=== PATIENT | male | born 1975 | race American Indian/Alaskan Native ===

== ENCOUNTER 2018-03-19 07:38 | Emergency (ER) | payer OTHER ==
[2018-03-19 08:42] LABS: Basophils # (Auto) 0.1 K/mm3 (0.0-0.1); Basophils % (Auto) 0.7 % (0.0-1.8); Lymphocytes # (Auto) 1.5 K/mm3 (1.2-5.4); Lymphocytes % (Auto) 11.8 % (13.4-35.0); Mean Corpuscular HGB Conc 36 % (32-34); Mean Corpuscular Hemoglobin 34 pg (28-32); Mean Corpuscular Volume 96 fl (84-94); Monocytes # (Auto) 0.9 K/mm3 (0.0-0.8); Monocytes % (Auto) 6.9 % (0.0-7.3); Platelet Count 244 K/mm3 (140-440)
[2018-03-19 08:45] LABS: Hematocrit 43.3 % (35.5-45.6); Hemoglobin 15.4 gm/dl (11.8-15.2)
[2018-03-19] MEDS ORDERED: NACL 0.9% 1000 ML 1,000 ML IV ONE (09:01)
[2018-03-19] MEDS ORDERED: DILAUDID IV ONE (09:01)
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
[2018-03-19 09:13] LABS: BUN/Creatinine Ratio 10; Blood Urea Nitrogen 9 mg/dL (9-20); Calcium 9.6 mg/dL (8.4-10.2); Hemolysis Index 18
--- NOTE | 2018-03-19 09:33 | XRay Report ---
CHEST 2 VIEWS INDICATION: Tachycardia, hypertension. COMPARISON: 01/25/2014 FINDINGS: PA and lateral chest radiographs again demonstrate normal cardiomediastinal silhouette, clear lungs, mild eventration of the right hemidiaphragm anteriorly/juxtraphrenic peak, right AC joint old deformity/spurring and few surgical clips overlying the left upper lung peripherally. Slight biapical scarring/pleural thickening. EKG leads now noted. CONCLUSION: No acute chest process or significant interval change, as described. Thank you for the opportunity to participate in this patient's care.
[2018-03-19 09:40] LABS: INR 1.02 (0.87-1.13)
[2018-03-19 09:41] LABS: Partial Thromboplastin Time 26.4 Sec. (24.2-36.6)
[2018-03-19] MEDS ORDERED: TORADOL ONE (10:49)
[2018-03-19] MEDS ORDERED: TORADOL IV ONE (11:00)
[2018-03-19] MEDS ORDERED: NORMODYNE IV ONE (11:20)
--- NOTE | 2018-03-19 12:23 | Cat Scan Report ---
CTA CHEST INDICATION: Tachycardia, back pain, arm pain. COMPARISON: 12/11/[address] FINDINGS: Chest CTA performed following intravenous administration of 100 cc of Omnipaque 350. Rotational MIP's also obtained. Borderline cardiomegaly with silhouette mildly exaggerated due to pericardial fat pad. No effusions or size significant adenopathy. No aortic aneurysm, dissection or suspicious pulmonary arterial filling defects, to the extent assessed. Normal imaged thyroid. Right hemidiaphragm mildly elevated. Bibasilar dependent atelectasis. Nonspecific distal esophageal wall prominence/patulous appearance, not excluded for gastroesophageal reflux and/or hiatal hernia, amongst others. No significant abnormality in the imaged upper abdomen with phrygian cap appearance of the gallbladder incidentally noted. Liver prominent/slightly enlarged at approximately 18 cm in midclavicular length. CONCLUSION: No CT evidence of pulmonary embolism with few incidental findings, as above. Please correlate. Thank you for the opportunity to participate in this patient's care.
[2018-03-19 12:49] VITALS: BP 153/105
--- NOTE | 2018-03-19 15:08 | Vascular Lab Report ---
LEFT UPPER EXTREMITY VENOUS DUPLEX: REASON FOR EXAM: Pain and swelling of the left upper extremity COMMENTS ON THE LEFT: All arm veins visualized are freely compressible without evidence of internal echogenicity. The subclavian and internal jugular veins are free of thrombus. Flow is spontaneous and phasic throughout. COMMENTS ON THE RIGHT: A limited study of the jugular and subclavian veins shows no evidence of thrombus. IMPRESSION: No evidence of acute or chronic deep venous thrombosis in the left upper extremity.
== END 2018-03-19 12:52 | disposition home or self-care (01) ==
LOC: ED 07:38
DX: I10 Essential (primary) hypertension (principal); M79.602 Pain in left arm; M54.2 Cervicalgia; F17.200 Nicotine dependence, unspecified, uncomplicated
CPT/HCPCS: 36415; 71046; 71275; 80048; 82550; 83735; 84443; 85025; 85610; 85730; 93005; 93010; 93971; 96361; 96374; 96375; 99284; J1170; J1885; J7030; Q9967

== ENCOUNTER 2019-09-17 21:51 | Emergency (ER) | payer BC, OTHER ==
--- NOTE | 2019-09-17 21:59 | Emergency Department Report ---
Blank Doc - Documentation Documentation: 44-year-old male that presents with right flank pain with radiation to RUQ and hematuria. This initial assessment/diagnostic orders/clinical plan/treatment(s) is/are subject to change based on patient's health status, clinical progression and re- assessment by fellow clinical providers in the ED. Further treatment and workup at subsequent clinical providers discretion. Patient/guardians urged not to elope from the ED as their condition may be serious if not clinically assessed and managed. Initial orders include: 1- Patient sent to [facility] for further evaluation and treatment 2- labs 3- UA 4- CT abd
--- NOTE | 2019-09-17 22:56 | Cat Scan Report ---
CT ABDOMEN AND PELVIS WITHOUT CONTRAST INDICATION / CLINICAL INFORMATION: RENAL STONE PROTOCOL!!! Pt complains of RIGHT flank pain. TECHNIQUE: Axial CT images were obtained through the abdomen and pelvis without IV contrast. All CT scans at [facility] location are performed using CT dose reduction for ALARA by means of automated exposure control. COMPARISON: None available. FINDINGS: LOWER CHEST: No significant abnormality. LIVER: No significant abnormality. GALLBLADDER: No significant abnormality. BILE DUCTS: No significant abnormality. PANCREAS: No significant abnormality. SPLEEN: No significant abnormality. ADRENALS: No significant abnormality. RIGHT KIDNEY and URETER: No significant abnormality. LEFT KIDNEY and URETER: No significant abnormality. STOMACH and SMALL BOWEL: Small to moderate size sliding-type hiatal hernia. COLON: No significant abnormality. APPENDIX: No significant abnormality. PERITONEUM: No free fluid. No free air. No fluid collection. LYMPH NODES: No significant adenopathy. AORTA and ARTERIES: No significant abnormality. IVC and VEINS: No significant abnormality. URINARY BLADDER: No significant abnormality. REPRODUCTIVE ORGANS: No significant abnormality. ADDITIONAL FINDINGS: None. SKELETAL SYSTEM: No significant abnormality. IMPRESSION: 1. No urinary tract stones or hydronephrosis. 2. No inflammatory process or bowel obstruction. 3. Small to moderate-sized hiatal hernia. Signer Name: Patricio Cruz MD Signed: 09/17/2019 10:52 PM Workstation Name: [id number]
[2019-09-17 22:58] LABS: Basophils % (Auto) 0.4 % (0.0-1.8); Eosinophils % (Auto) 0.3 % (0.0-4.3); Hematocrit 46.8 % (35.5-45.6); Hemoglobin 15.9 gm/dl (11.8-15.2); Lymphocytes # (Auto) 2.1 K/mm3 (1.2-5.4); Lymphocytes % (Auto) 21.2 % (13.4-35.0); Mean Corpuscular HGB Conc 34 % (32-34); Mean Corpuscular Volume 97 fl (84-94); Monocytes # (Auto) 1.1 K/mm3 (0.0-0.8); Monocytes % (Auto) 11.1 % (0.0-7.3); Platelet Count 252 K/mm3 (140-440); Red Blood Count 4.81 M/mm3 (3.65-5.03); Red Cell Distribution Width 13.1 % (13.2-15.2)
[2019-09-17 23:18] LABS: Alanine Aminotransferase 34 units/L (7-56); Albumin 4.9 g/dL (3.9-5); BUN/Creatinine Ratio 9; Blood Urea Nitrogen 9 mg/dL (9-20); Calcium 9.5 mg/dL (8.4-10.2); Hemolysis Index 14
[2019-09-18] MEDS ORDERED: cloNIDine 0.1 MG TAB PO ONE (00:19)
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
[2019-09-18 01:33] LABS: Bilirubin,Urine NEG (Negative); Blood,Urine NEG (Negative); Color,Urine Yellow (Yellow); Protein,Urine <15 mg/dL mg/dL (Negative); RBC,Urine < 1.0 /HPF (0.0-6.0); Urobilinogen,Urine < 2.0 mg/dL (<2.0)
[2019-09-18 01:45] LABS: WBC,Urine < 1.0 /HPF (0.0-6.0)
[2019-09-18 01:49] VITALS: BP 162/105
--- NOTE | 2019-09-18 02:08 | Cat Scan Report ---
CTA ABDOMEN AND PELVIS WITH CONTRAST INDICATION / CLINICAL INFORMATION: DISSECTION PROTOCOL!!! Pt states RIGHT flank pain, Questionable Hematuria, Hypertension Omnipaque 350 / 100ml's was used for this exam. 4.0cc per second, 18g Left upper arm. TECHNIQUE: Axial CT images were obtained through the abdomen and pelvis before and after after injection of IV c ontrast. 3 plane MIP / 3D reconstructions were produced. All CT scans at this location are performed using CT dose reduction for ALARA by means of automated exposure control. COMPARISON: Noncontrast CT dated 09/17/19 FINDINGS: Aorta: No significant abnormality. No abnormality dissection or aneurysmal dilation. Renal arteries: No significant abnormality. Celiac artery: No significant abnormality. Superior Mesenteric Artery: No significant abnormality. Inferior mesenteric artery: No significant abnormality. Right Iliac Arteries: Mild atherosclerotic disease without significant stenosis or acute abnormality. . Left Iliac Arteries: Mild atherosclerotic disease of the left internal iliac artery.. Additional Findings: Small to moderate-sized hiatal hernia is unchanged. No acute process in the abdo men or pelvis. Skeletal Structures: No significant abnormality. IMPRESSION: 1. No aortic dissection or other acute vascular abnormality identified. Signer Name: Patricio Cruz MD Signed: 09/18/2019 2:03 AM Workstation Name: [id number]
== END 2019-09-18 02:55 | disposition home or self-care (01) ==
LOC: ED 21:51
DX: K44.9 Diaphragmatic hernia without obstruction or gangrene (principal); I10 Essential (primary) hypertension; R31.9 Hematuria, unspecified; F17.200 Nicotine dependence, unspecified, uncomplicated
CPT/HCPCS: 36415; 74174; 74176; 80053; 81001; 85025; 87086; 99284; Q9967